=== PATIENT | female | born 1990 | race Caucasian/White ===

== ENCOUNTER 2022-04-05 14:21 | Outpatient (CLI) | payer OTHER ==
[2022-04-05 15:33] LABS: HEMOGLOBIN 12.9 gm/dl (12.3-15.3); RED BLOOD COUNT 4.2 M/UL (4.00-5.10); WHITE BLOOD COUNT 16.5 K/UL (4.5-11.0)
[2022-04-05 15:59] LABS: BUN/CREATININE RATIO 27 (0-10)
== END 2022-04-05 18:30 ==
LOC: GENOP 14:21
PROVIDERS: Obstetrics & Gynecology
DX: O99.891 Other specified diseases and conditions complicating pregnancy (principal); R10.9 Unspecified abdominal pain; R03.0 Elevated blood-pressure reading, without diagnosis of hypertension
CPT/HCPCS: 36415; 80053; 81001; 82570; 84156; 85025; 96360; 96365; 96366; 96372; 96374; 96375; J0360; J0610; J0702; J3475